=== PATIENT | female | born 1950 | race Caucasian/White ===

== ENCOUNTER 2017-04-27 12:12 | Emergency (ER) | payer MEDICAID ==
[2017-04-27 12:13] VITALS: BMI 37.8
[2017-04-27 12:33] VITALS: O2SAT 99
[2017-04-27] MEDS ORDERED: Morphine 4 mg/ml ISec IVP STA (12:53)
[2017-04-27] MEDS ORDERED: Sodium Chloride 0.9% 1,000 ML IV STA (12:53)
--- NOTE | 2017-04-27 12:58 | ED PDOC ---
Arrival/HPI - General Chief Complaint: Abdominal Pain Time Seen by Provider: 04/27/17 12:33 Historian: Patient, Gym Manager (interpretor program) - History of Present Illness Narrative History of Present Illness (Text): 04/27/17 12:55 pt p/w + worsening right flank/pelvic pain x few days; pt states right flank pain has been ongoing since her discharge from hospital at the beginning of April; pt was recently treated in the hospital for urosepsis and was given a right-sided? ureteral stent; pt states she thinks the right flank pain is likely cause by the persistence of the ureteral stent; pt states she felt + duysuria/urinary frequency; ? faint bleeding noted; pt states no fever/chills/ sweats, no cp/sob/palpitations, no anterior abd pain, ? nausea, no vomiting, no rashes, no gross bleeding, no fall/trauma/sick contact, no travel; pt denied other complaints; pt is here for further eval. PCP: DR Chaudhary? Time/Duration: 1 week, Other (~ 1 month of right flank/pelvic pain but worsening over the last 1 week) Symptom Onset: Sudden Symptom Course: Worsening Quality: Stabbing, Cramping Severity Level: 7, Severe Activities at Onset: Rest Context: Home Past Medical History - Provider Review Nursing Documentation Reviewed: Yes - Travel History Have you recently traveled outside [place] w/in the past 3 mons?: No - Past History Past History: Unable to Obtain - Infectious Disease Hx of Infectious Diseases: None - Tetanus Immunization Tetanus Immunization: Unknown - Reproductive Menopause: Yes Currently : No - Cardiac Hx Cardiac Disorders: Yes Hx Hypertension: Yes - Pulmonary Hx Respiratory Disorders: No - Neurological Hx Neurological Disorder: No - HEENT Hx HEENT Disorder: No - Renal Hx Renal Disorder: No - Endocrine/Metabolic Hx Endocrine Disorders: Yes Hx Diabetes Mellitus Type 2: Yes - Hematological/Oncological Hx Blood Disorders: No Hx Blood Transfusions: No - Integumentary Hx Dermatological Disorder: No - Musculoskeletal/Rheumatological Hx Musculoskeletal Disorders: Yes Hx Arthritis: Yes Hx Back Pain: Yes Hx Falls: No Hx Fractures: No - Gastrointestinal Hx Gastrointestinal Disorders: Yes Hx Gastroesophageal Reflux: Yes - Genitourinary/Gynecological Hx Genitourinary Disorders: No Hx Incontinence: Yes Hx Urinary Tract Infection: Yes Other/Comment: PROLAPSED BLADDER - Psychiatric Hx Psychophysiologic Disorder: No Hx Substance Use: No - Past Surgical History Past Surgical History: Unable to Obtain - Surgical History Hx Cholecystectomy: Yes Hx Hysterectomy: Yes - Anesthesia Hx Anesthesia: Yes Hx Anesthesia Reactions: No Hx Malignant Hyperthermia: No - Suicidal Assessment Feels Threatened In Home Enviroment: No Family/Social History - Physician Review Nursing Documentation Reviewed: Yes Family/Social History: No Known Family HX Smoking Status: Never Smoked Hx Alcohol Use: No Hx Substance Use: No Hx Substance Use Treatment: No Allergies/Home Meds Allergies/Adverse Reactions: Allergies No Known Allergies Allergy (Verified 04/27/17 12:16) Home Medications: Home Meds Medication Instructions Recorded Confirmed Aspirin [Ecotrin] 81 mg PO DAILY 10/21/16 04/27/17 Atenolol 50 mg PO HS 10/21/16 04/27/17 Ergocalciferol (Vitamin D2) 50,000 unit PO QWK 10/21/16 04/27/17 [Vitamin D2] Gabapentin [Neurontin] 100 mg PO HS 10/21/16 04/27/17 Meloxicam [Mobic] 15 mg PO DAILY 10/21/16 04/27/17 Multivit-Min/Iron/Folic/Lutein 1 each PO DAILY 10/21/16 04/27/17 [Centrum Silver Women Tablet] Omeprazole 40 mg PO DAILY 10/21/16 04/27/17 amLODIPine [Norvasc] 5 mg PO DAILY 10/21/16 04/27/17 metFORMIN [glucOPHAGE] 500 mg PO BID 10/21/16 04/27/17 Review of Systems - Review of Systems Constitutional: Fatigue. absent: Weight Change, Fevers Eyes: Normal ENT: Normal Respiratory: Normal Cardiovascular: Normal Gastrointestinal: Nausea, Other (right flank pain). absent: Abdominal Pain Genitourinary Female: Dysuria, Hematuria. absent: Frequency, Vaginal Bleeding, Vaginal Discharge Musculoskeletal: Back Pain. absent: Arthralgias, Neck Pain Skin: Normal Neurological: Normal Endocrine: Normal Hemo/Lymphatic: Normal Psychiatric: Normal Physical Exam Vital Signs Reviewed: Yes Vital Signs Temp Pulse Resp BP Pulse Ox 04/27/17 15:36 98.3 F 70 18 121/60 99 04/27/17 15:05 69 18 117/78 99 04/27/17 14:10 75 18 115/75 99 04/27/17 12:17 98.0 F 77 20 113/81 99 Temperature: Afebrile Blood Pressure: Normal Pulse: Regular Respiratory Rate: Normal Appearance: Positive for: Well-Appearing, Other (uncomfortable, alert/awake, GCS = 15, oriented x 3, NAD, cooperative, follows command with ease) Pain Distress: None Mental Status: Positive for: Alert and Oriented X 3 - Systems Exam Head: Present: Atraumatic, Normocephalic Pupils: Present: PERRL, Other (visual field intact b/l, no nystagmus, no photophobia) Extroacular Muscles: Present: EOMI Conjunctiva: Present: Normal Ears: Present: Normal Mouth: Present: Moist Mucous Membranes, Normal Teeth Pharnyx: Present: Normal Nose (External): Present: Atraumatic Nose (Internal): Present: Normal Inspection Neck: Present: Normal Range of Motion, Trachea Midline, Other (no nuchal rigidity). No: Meningeal Signs, MIDLINE TENDERNESS Respiratory/Chest: Present: Clear to Auscultation, Good Air Exchange, Other ( CTA b/l, no w/r/r) Cardiovascular: Present: Regular Rate and Rhythm, Normal S1, S2. No: Murmurs Abdomen: Present: Normal Bowel Sounds, Other (well nourished/obese female, no focal anterior abd tenderness, no cordova's sign, no mcburney's point tenderness , no masses/rebound/guarding/rigidity) Back: Present: Normal Inspection, CVA Tenderness (+ right CVAT > left; no midline tenderness, no crepitus, no step off). No: Midline Tenderness Upper Extremity: Present: Normal Inspection, Normal ROM, NORMAL PULSES, Neurovascularly Intact Lower Extremity: Present: Normal Inspection, NORMAL PULSES, Normal ROM, Neurovascularly Intact, Capillary Refill < 2 s, Other (+ ambulatory, neurovasc intact b/l) Neurological: Present: GCS=15, CN II-XII Intact, Speech Normal, Normal Sensory Function Skin: Present: Warm, Normal Color, Other (cap refill < 1sec, no ulcerations, no petechiae, no rashes, no pallor) Psychiatric: Present: Alert, Oriented x 3 Medical Decision Making ED Course and Treatment: 04/27/17 12:56 Impression: right flank pain, pelvic pressure; dysuria i have consider all the differential diagnosis regarding pt's chief medical complaints/clinical findings, including but are not limited to: right flank pain , dysuria A/P: right flank pain, dysuria - labs - ua - ucx - U/S - observe - supportive care 04/27/17 15:57 pt currently has no pain pt felt improved I spoke to Dr Celine Diaz who remember the patient during her stay in the hospital ; made aware of pt's presentation today, and suggests if pt's pain is improved, pt can f/u with him in the office, to call his Cell at [phone] and to arrange for outpt follow up pt is made aware of her medical results pt is encouraged fluid hydration pt will f/u as directed pt will be discharged home Re-evaluation Time: 15:57 Reassessment Condition: Improved - Lab Interpretations Lab Results: 04/27/17 13:05 04/27/17 13:05 Lab Results 04/27/17 13:05: pO2 44, VBG pH 7.36, VBG pCO2 53.0, VBG HCO3 29.9 H, VBG Total CO2 31.5 H, VBG O2 Sat (Calc) 78.8 H, VBG Base Excess 3.2 H, VBG Potassium 4.1, Sodium 140.0, Chloride 107.0, Glucose 103, Lactate 1.0, FiO2 21.0, Venous Blood Potassium 4.1 04/27/17 13:05: Sodium 141, Chloride 104, Potassium 4.2, Carbon Dioxide 27, Anion Gap 14, BUN 20, Creatinine 0.6 L, Est GFR ( Amer) > 60, Est GFR ( Non-Af Amer) > 60, Random Glucose 103, Calcium 9.8, Total Bilirubin 0.2, AST 19 , ALT 29, Alkaline Phosphatase 66, Total Protein 6.8, Albumin 3.8, Globulin 3.0 , Albumin/Globulin Ratio 1.3, Lipase 73 04/27/17 13:05: Urine Color Yellow, Urine Appearance Turbid, Urine pH 6.0, Ur Specific [place] 1.020, Urine Protein 30 H, Urine Glucose (UA) Negative, Urine Ketones Negative, Urine Blood Large H, Urine Nitrate Negative, Urine Bilirubin Negative, Urine Urobilinogen 0.2, Ur Leukocyte Esterase Trace H, Urine RBC Tntc , Urine WBC 1 - 3, Ur Epithelial Cells 3 - 4, Urine HCG, Qual Negative 04/27/17 13:05: PT 11.7, INR 1.02, APTT 28.8 04/27/17 13:05: WBC 4.5, RBC 3.47 L, Hgb 10.7 L, Hct 30.7 L, MCV 88.5, MCH 30.8 , MCHC 34.9, RDW 13.4, Plt Count 281, MPV 8.4, Gran % 44.5 L, Lymph % (Auto) 45.9 H, Pope % (Auto) 6.0, Eos % (Auto) 2.9, Baso % (Auto) 0.7, Gran # 2.01, Lymph # (Auto) 2.1, Pope # (Auto) 0.3, Eos # (Auto) 0.1, Baso # (Auto) 0.03 I have reviewed the lab results: Yes Interpretation: All labs normal - RAD Interpretation Narrative RAD Interpretations (Text): Report Date : 04/27/2017 14:35:45 PROCEDURE: Ultrasound of the Kidneys Dictator : Katrin Reyes MD IMPRESSION: 11 mm nonobstructing stone in the lower pole of the left kidney. No hydronephrosis. No right nephrolithiasis. Radiology Orders: 04/27/17 12:54 RENAL [US] [employer] Specialist: Radiologist - Medication Orders Current Medication Orders: Discontinued Medications Sodium Chloride (Sodium Chloride 0.9%) 1,000 mls @ 1,000 mls/hr IV .Q1H STA Stop: 04/27/17 13:52 Last Admin: 04/27/17 13:18 Dose: 1,000 mls/hr eMAR Start Stop Document 04/27/17 13:18 [facility] (Rec: 04/27/17 13:18 [facility] [id number]) Intravenous Solution Start Date 04/27/17 Start Time 13:18 End Date 04/27/17 End time 14:20 Total Infusion Time 62 Ketorolac Tromethamine (Toradol) 30 mg IVP STAT STA Stop: 04/27/17 12:54 Last Admin: 04/27/17 13:18 Dose: 30 mg MAR Pain Assessment Document 04/27/17 13:18 [facility] (Rec: 04/27/17 13:19 [facility] [id number]) Pain Reassessment Is this a pain reassessment? No Sleep Is patient sleeping during reassessment? No Presence of Pain Presence of Pain Yes Pain Scale Used Pain Scale Used Numeric Location Pain Location Body Site Abdomen Description Description Burning Intensity of Pain at present 10 IVP Administration Document 04/27/17 13:18 [facility] (Rec: 04/27/17 13:19 [facility] [id number]) Charges for Administration # of IVP Administrations 1 Morphine Sulfate (Morphine) 4 mg IVP STAT STA Stop: 04/27/17 12:54 Last Admin: 04/27/17 13:18 Dose: 4 mg MAR Pain Assessment Document 04/27/17 13:18 [facility] (Rec: 04/27/17 13:18 [facility] [id number]) Pain Reassessment Is this a pain reassessment? No Sleep Is patient sleeping during reassessment? No Presence of Pain Presence of Pain Yes Pain Scale Used Pain Scale Used Numeric Location Pain Location Body Site Abdomen Description Intensity of Pain at present 10 IVP Administration Document 04/27/17 13:18 [facility] (Rec: 04/27/17 13:18 [facility] [id number]) Charges for Administration # of IVP Administrations 1 Phenazopyridine HCl (Pyridium) 100 mg PO STAT STA Stop: 04/27/17 12:57 Last Admin: 04/27/17 13:19 Dose: 100 mg Disposition/Present on Arrival - Present on Arrival Any Indicators Present on Arrival: No History of DVT/PE: No History of Uncontrolled Diabetes: Yes Urinary Catheter: No History of Decub. Ulcer: No History Surgical Site Infection Following: None - Disposition Have Diagnosis and Disposition been Completed?: Yes Diagnosis: Pelvic pain, Flank pain, Kidney stone on left side Disposition: HOME/ ROUTINE Disposition Time: 15:58 Patient Plan: Discharge Patient Problems: Current Active Problems Problem Status Onset Flank pain Acute Pelvic pain Acute Condition: STABLE Discharge Instructions (ExitCare): Flank Pain Print Language: NAURUAN Additional Instructions: Make sure to see your doctor in 1-2 days YOU NEED TO MAKE AN APPOINTMENT WITH DR DIAZ at [phone] for follow up DRINK PLENTY OF FLUIDS take your medications as prescribed RETURN TO ED IF worse pain, cant breath, persistent vomiting, high fever >101- 102 for hours, altered behavior, unable to urinate, heavy/persistent bleeding, passing out, chest pain, or other medical emergencies Prescriptions: Ibuprofen [Motrin] 400 mg PO QID PRN #30 tab PRN Reason: Pain, Mild (1-3) oxyCODONE/Acetaminophen [Percocet 5/325 mg Tab] 1 ea PO TID PRN #12 tab PRN Reason: Pain, Moderate (4-7) Phenazopyridine HCl [Pyridium] 100 mg PO TID PRN #5 tablet PRN Reason: Pain, Mild (1-3) Referrals: Rei Diaz MD [Staff Provider] - Follow up with primary PCP,NO [Non-Staff] - Follow up with primary Forms: [employer] (Turkish)
[2017-04-27 13:37] LABS: VENOUS BLOOD GAS BASE EXCESS 3.2 mmol/L (0.0-2.0); VENOUS BLOOD GAS PO2 44 mm/Hg (30-55); VENOUS BLOOD PH 7.36 (7.32-7.43)
[2017-04-27 13:40] LABS: BASO # 0.03 K/mm3 (0.0-2.0); BASO % 0.7 % (0.0-3.0); EOS # 0.1 (0.0-0.7); EOS % 2.9 % (1.5-5.0); GRAN # 2.01 (1.4-6.5); GRAN % 44.5 % (50.0-68.0); HEMOGLOBIN 10.7 g/dL (12.0-16.0); LYMPH # 2.1 (1.2-3.4); LYMPH % 45.9 % (22.0-35.0); MEAN CELL VOLUME 88.5 fl (80.0-105.0); MEAN CORPUSCULAR HEMOGLOBIN 30.8 pg (25.0-35.0); MEAN CORPUSCULAR HGB CONC 34.9 g/dl (31.0-37.0); MEAN PLATELET VOLUME 8.4 fl (7.0-11.0); MONO # 0.3 (0.1-0.6); RBC 3.47 10^6/uL (3.5-6.1); RED CELL DISTRIBUTION WIDTH 13.4 % (11.5-14.5); WHITE BLOOD COUNT 4.5 10^3/ul (4.5-11.0)
[2017-04-27 13:41] LABS: URINE APPEARANCE TURBID (CLEAR); URINE BILIRUBIN NEGATIVE (NEGATIVE); URINE BLOOD LARGE (NEGATIVE); URINE COLOR YELLOW (YELLOW); URINE GLUCOSE (UA) NEGATIVE (NEGATIVE); URINE LEUKOCYTE ESTERASE TRACE Leu/uL (NEGATIVE); URINE PROTEIN 30 mg/dL (<30 mg/dL); URINE UROBILINOGEN 0.2 E.U./dL (<1 E.U./dL)
[2017-04-27 13:44] LABS: URINE RBC TNTC /hpf (0-2)
[2017-04-27 13:45] LABS: HCG,QUALITATIVE URINE NEGATIVE (NEGATIVE)
[2017-04-27 13:48] LABS: ALB/GLOB RATIO 1.3 (1.1-1.8); ALBUMIN 3.8 g/dL (3.0-4.8); ALT/SGPT 29 U/L (7-56); AST/SGOT 19 U/L (14-36); BLOOD UREA NITROGEN 20 mg/dL (7-21); CALCIUM 9.8 mg/dL (8.4-10.5); GFR AFRICAN-AMERICAN > 60; GFR NON-AFRICAN AMERICAN > 60; LIPASE 73 U/L (23-300)
[2017-04-27 13:52] LABS: INR 1.02 (0.93-1.08); PARTIAL THROMBOPLASTIN TIME 28.8 Seconds (25.1-36.5); PROTHROMBIN TIME 11.7 SECONDS (9.4-12.5)
[2017-04-27 14:10] VITALS: RESP 18
--- NOTE | 2017-04-27 14:37 | US ---
PROCEDURE: Ultrasound of the Kidneys HISTORY: r/o hydro COMPARISON: None available. TECHNIQUE: Grayscale imaging was performed. FINDINGS: RIGHT KIDNEY: Measures: 11.2 cm. Normal in size, contour and echogenicity. No stone, solid mass lesion or hydronephrosis visualized. There is a 7 mm simple cyst in the upper pole and 1.5 cm simple cyst in the lower pole. LEFT KIDNEY: Measures: 12.1 cm. Normal in size, contour and echogenicity. There is a 11 mm nonobstructing stone in the lower pole. There is a 1.0 cm cyst with probable partial calcification in the upper pole. No solid mass lesion or hydronephrosis visualized. There is a 1.2 cm simple cyst in the interpolar region. OTHER FINDINGS: None. IMPRESSION: 11 mm nonobstructing stone in the lower pole of the left kidney. No hydronephrosis. No right nephrolithiasis.
[2017-04-27 15:40] VITALS: BP 121/60; PULSE 70; TEMP 98.3
--- NOTE | 2017-04-27 18:08 | CARD ---
APPROVED REPORT EKG Measurement Heart [id number] <Conclusion> Normal sinus rhythm Moderate voltage criteria for LVH, may be normal variant Borderline ECG
== END 2017-04-27 16:15 | disposition home or self-care (01) ==
LOC: ED 12:12
DX: N20.0 Calculus of kidney (principal); R10.2 Pelvic and perineal pain; R10.9 Unspecified abdominal pain; I10 Essential (primary) hypertension; Z90.49 Acquired absence of other specified parts of digestive tract
CPT/HCPCS: 76770; 80053; 81001; 82803; 83690; 84703; 85025; 85610; 85730; 87086; 93005; 96361; 96374; 96375; 99284; J1885; J2270; J7040